=== PATIENT | female | born 1955 | race Caucasian/White ===

== ENCOUNTER 2017-09-15 08:19 | Inpatient (IN) | payer BC ==
[~2017-09-15] VITALS: Ht 165.1 cm; Wt 70.4 kg
[2017-09-15 09:11] LABS: Basophils # (auto) 0 uL; Basophils % (auto) 0.2 % (0.0-2.0); Eosinophils # (auto) 0 uL; Hematocrit 43.4 % (36.0-46.0); Hemoglobin 14.8 g/dL (12.2-16.2); Lymphocytes # (auto) 0.3 uL; Mean Corpuscular Hemoglobin 31.5 pg (28.0-32.0); Mean Corpuscular Volume 92.7 fL (80.0-100.0); Monocytes # (auto) 0 uL; Monocytes % (auto) 0.6 % (0.0-12.0); Neutrophils # (auto) 7.4 uL; Neutrophils % (auto) 95.2 % (37.0-80.0); Platelet Count (auto) 277 10^3/uL (140-450); Red Blood Cells 4.69 10^6/uL (4.0-5.20); Red Cell Distribution Width 13.8 % (11.8-14.3); White Blood Cell 7.8 10^3/uL (4.4-10.8)
[2017-09-15] MEDS ORDERED: ALBUTEROL SULF 2.5 MG/0.5ML(0.5%) NEB SOLN NEB ONE (09:30)
[2017-09-15] MEDS ORDERED: IPRATROPIUM BROM 0.5 MG/2.5ML INH SOL NEB ONE (09:30)
[2017-09-15] MEDS ORDERED: methylPREDNISolone SOD SUCC 125 MG/2 ML VL IV ONE (09:30)
[2017-09-15 09:43] LABS: Albumin 3.2 g/dL (3.4-5.0); BUN/Creatinine Ratio 12.5; Bilirubin, Total 0.7 mg/dL (0.2-1.0); Calcium 8.4 mg/dL (8.5-10.1); Potassium 3.3 mmol/L (3.5-5.1); Total Protein 7.3 g/dL (6.4-8.2)
[2017-09-15] MEDS ORDERED: POTASSIUM CHL 10% (20 MEQ/15ML) 15ml ORAL SOLN PO ONE (10:30)
[2017-09-15] MEDS ORDERED: HEPARIN SODIUM (PORCINE) 5000 UNITS/ML 1ML VIAL IV ONE (10:30)
[2017-09-15] MEDS ORDERED: SODIUM CHLORIDE 0.9% 1,000 ML IV SCH ×2 (10:35→13:15)
[2017-09-15] MEDS ORDERED: PROMETHAZINE HCL 25 MG/ML 1ML IV PRN (10:45)
[2017-09-15] MEDS ORDERED: OSELTAMIVIR 75 MG CAP PO ONE (10:45)
[2017-09-15] MEDS ORDERED: ALBUTEROL SULF 2.5 MG/0.5ML(0.5%) NEB SOLN NEB PRN (10:45)
[2017-09-15] MEDS ORDERED: ACETAMINOPHEN 500 MG TAB PO PRN (10:45)
[2017-09-15] MEDS ORDERED: ASPirin 81 mg TAB PO ONE (10:45)
[2017-09-15] MEDS ORDERED: TEMAZEPAM 15 MG CAP PO PRN (10:45)
[2017-09-15] MEDS ORDERED: NITROGLYCERIN 0.2MG/HR TOPICAL PATCH TD ONE (10:45)
[2017-09-15] MEDS ORDERED: MORPHINE SULFATE 10 MG/ML INJ 1ML SDV IV PRN ×2 (10:45)
[2017-09-15] MEDS ORDERED: NITROGLYCERIN 0.4 MG SL TAB SL PRN (10:45)
[2017-09-15] MEDS ORDERED: LACTULOSE 20Gm/30ML SOLN PO PRN (10:45)
[2017-09-15] MEDS ORDERED: LORazepam 0.5 MG TAB PO PRN (10:45)
[2017-09-15] MEDS ORDERED: HYDROcodone-ACET 5/325MG TAB PO PRN (10:45)
[2017-09-15 11:33] LABS: INR 1.05 (0.9-1.15); Partial Thromboplastin Time 24.6 sec (22.64-33.71); Prothrombin Time 11.4 sec (9.37-12.3)
[2017-09-15] MEDS: methylPREDNISolone SOD SUCC 40 MG/ML VL IV SCH ×2 (11:36→23:00)
[2017-09-15] MEDS: DOXYCYCLINE HYC 100MG/250ML 250 ML IV SCH ×2 (11:40→23:14)
[2017-09-15] MEDS: ENOXAPARIN SOD 80 MG/0.8ML SYRINGE SC SCH ×2 (11:40→21:25)
[2017-09-15] MEDS ORDERED: SODIUM CHLORIDE 0.9% 1,000 ML IV ONE ×2 (12:00→13:15)
[2017-09-15] MEDS ORDERED: IOHEXOL 350 MG/ML 100ML IJ ONE (12:20)
[2017-09-15] MEDS: ALBUTEROL SULF 2.5 MG/0.5ML(0.5%) NEB SOLN NEB SCH ×2 (13:23→19:17)
[2017-09-15] MEDS: IPRATROPIUM BROM 0.5 MG/2.5ML INH SOL NEB SCH ×2 (13:23→19:17)
[2017-09-15] MEDS: SODIUM CHLORIDE 0.9% 1,000 ML IV SCH ×2 (15:28→22:25)
[2017-09-15] MEDS ORDERED: NOREPINEPHRINE 8 MG/250ML KIT 250 ML IV ONE (18:40)
[2017-09-15] MEDS ORDERED: NOREPINEPHRINE 8 MG/250ML KIT 250 ML IV SCH (18:45)
[2017-09-15 20:45] VITALS: BP 106/61
[2017-09-15] MEDS: OSELTAMIVIR 75 MG CAP PO SCH (22:00)
[2017-09-15] MEDS: METOPROLOL TARTRATE 25 MG TAB PO SCH (22:00)
[2017-09-15] MEDS: ATORVASTATIN 20 MG TAB PO SCH (22:25)
[2017-09-16] MEDS: ALBUTEROL SULF 2.5 MG/0.5ML(0.5%) NEB SOLN NEB SCH ×5 (00:29→19:13)
[2017-09-16] MEDS: IPRATROPIUM BROM 0.5 MG/2.5ML INH SOL NEB SCH ×5 (00:29→19:13)
[2017-09-16 04:09] LABS: Basophils # (auto) 0 uL; Eosinophils # (auto) 0 uL; Hematocrit 36.6 % (36.0-46.0); Hemoglobin 12.2 g/dL (12.2-16.2); Lymphocytes # (auto) 0.6 uL; Lymphocytes % (auto) 2.8 % (10.0-50.0); Mean Corpuscular Hgb Conc. 33.3 g/dL (32.0-36.0); Mean Corpuscular Volume 92.9 fL (80.0-100.0); Monocytes # (auto) 0.4 uL; Monocytes % (auto) 1.8 % (0.0-12.0); Neutrophils # (auto) 21.5 uL; Neutrophils % (auto) 95.4 % (37.0-80.0); Nucleated Red Blood Cells % 0.1 %; Platelet Count (auto) 234 10^3/uL (140-450); Red Blood Cells 3.94 10^6/uL (4.0-5.20); Red Cell Distribution Width 14.2 % (11.8-14.3); White Blood Cell 22.5 10^3/uL (4.4-10.8)
[2017-09-16 04:33] LABS: Albumin 2.6 g/dL (3.4-5.0); BUN/Creatinine Ratio 20.4; Bilirubin, Total 0.2 mg/dL (0.2-1.0); Calcium 7.7 mg/dL (8.5-10.1); Total Protein 6.2 g/dL (6.4-8.2)
[2017-09-16] MEDS: SODIUM CHLORIDE 0.9% 1,000 ML IV SCH (07:17)
[2017-09-16 09:10] LABS: Alcohol, Urine < 3.0 mg/dL (0-5); Amphetamine Screen, Urine NEGATIVE (NEGATIVE); Barbiturate Scree,Urine NEGATIVE (NEGATIVE); Benzodiazephine Screen, Urine NEGATIVE (NEGATIVE); Cannabinoid Screen, Urine NEGATIVE (NEGATIVE); Cocaine Screen, Urine NEGATIVE (NEGATIVE); Opiate Scree,Urine NEGATIVE (NEGATIVE); Phencyclidine Screen, Urine NEGATIVE (NEGATIVE)
[2017-09-16] MEDS ORDERED: SODIUM CHLORIDE 0.9% 1,000 ML IV ONE (09:30)
[2017-09-16] MEDS ORDERED: POTASSIUM CHL 20 Meq TABLET PO ONE (09:30)
[2017-09-16] MEDS ORDERED: SODIUM CHL 0.9% 0 ML ONE (09:34)
[2017-09-16] MEDS ORDERED: MIDAZOLAM HCL 1MG/1ML-2 ML VIAL ONE (09:34)
[2017-09-16] MEDS ORDERED: VERAPAMIL 2.5MG/ML INJ 2ML VIAL IV ONE (09:34)
[2017-09-16] MEDS ORDERED: fentaNYL CITRATE 100 MCG/2 ML VL ONE (09:34)
[2017-09-16] MEDS ORDERED: ANGIOMAX 250 MG VIAL IV ONE (09:34)
[2017-09-16] MEDS ORDERED: LIDOCAINE 2%HCL (LOCAL ANESTH.) INJ 20ML MDV ONE (09:37)
[2017-09-16] MEDS ORDERED: IODIXANOL 320MG/ML 100ML BTL IV ONE (09:37)
[2017-09-16] MEDS: ENOXAPARIN SOD 80 MG/0.8ML SYRINGE SC SCH (10:00)
[2017-09-16] MEDS: OSELTAMIVIR 75 MG CAP PO SCH (10:00)
[2017-09-16] MEDS: METOPROLOL TARTRATE 25 MG TAB PO SCH ×2 (10:00→21:29)
[2017-09-16] MEDS: NITROGLYCERIN 0.2MG/HR TOPICAL PATCH TD SCH (10:00)
[2017-09-16] MEDS ORDERED: HEPARIN 1,000 UNITS/ml 1ML VIAL ONE (10:13)
[2017-09-16] MEDS ORDERED: SODIUM CHLORIDE 0.9% 1,000 ML IV SCH (11:00)
[2017-09-16] MEDS: ASPirin 81 mg TAB PO SCH (11:52)
[2017-09-16] MEDS: methylPREDNISolone SOD SUCC 40 MG/ML VL IV SCH ×2 (11:52→22:28)
[2017-09-16 12:30] VITALS: BP 116/65
[2017-09-16] MEDS: DOXYCYCLINE HYC 100MG/250ML 250 ML IV SCH ×2 (12:53→22:28)
[2017-09-16 12:58] VITALS: BP 116/65
[2017-09-16 13:00] VITALS: BP 116/65
[2017-09-16] MEDS ORDERED: TIOTCAP IN (13:11)
[2017-09-16] MEDS ORDERED: BUDE0.5S IN (13:11)
[2017-09-16] MEDS ORDERED: LISI-646 PO (14:44)
[2017-09-16] MEDS ORDERED: PRAV20TA3 PO (14:44)
[2017-09-16 17:00] VITALS: BP 114/54
[2017-09-16] MEDS: ATORVASTATIN 20 MG TAB PO SCH (21:29)
[2017-09-16 22:25] VITALS: BP 117/73
[2017-09-17] MEDS: ALBUTEROL SULF 2.5 MG/0.5ML(0.5%) NEB SOLN NEB SCH ×3 (00:58→11:42)
[2017-09-17] MEDS: IPRATROPIUM BROM 0.5 MG/2.5ML INH SOL NEB SCH ×3 (00:58→11:42)
[2017-09-17 05:24] VITALS: BP 134/49
[2017-09-17 07:14] LABS: Basophils # (auto) 0 uL; Basophils % (auto) 0.1 % (0.0-2.0); Eosinophils # (auto) 0.2 uL; Eosinophils % (auto) 0.8 % (0.0-7.0); Hematocrit 36.4 % (36.0-46.0); Hemoglobin 12.1 g/dL (12.2-16.2); Lymphocytes # (auto) 0.8 uL; Lymphocytes % (auto) 3.4 % (10.0-50.0); Mean Corpuscular Hgb Conc. 33.1 g/dL (32.0-36.0); Mean Corpuscular Volume 93.7 fL (80.0-100.0); Monocytes % (auto) 4.2 % (0.0-12.0); Neutrophils # (auto) 21.9 uL; Neutrophils % (auto) 91.5 % (37.0-80.0); Platelet Count (auto) 207 10^3/uL (140-450); Red Blood Cells 3.89 10^6/uL (4.0-5.20); Red Cell Distribution Width 14.4 % (11.8-14.3); White Blood Cell 23.9 10^3/uL (4.4-10.8)
[2017-09-17 07:26] LABS: BUN/Creatinine Ratio 23.2; Magnesium 2.3 mg/dL (1.6-2.6); Phosphorus 2.3 mg/dL (2.5-4.90); Potassium 3.9 mmol/L (3.5-5.1)
[2017-09-17 08:00] VITALS: BP 126/73
[2017-09-17 09:00] VITALS: BP 126/73
[2017-09-17] MEDS: NITROGLYCERIN 0.2MG/HR TOPICAL PATCH TD SCH (10:00)
[2017-09-17] MEDS: METOPROLOL TARTRATE 25 MG TAB PO SCH (10:00)
[2017-09-17] MEDS: ASPirin 81 mg TAB PO SCH (10:00)
[2017-09-17] MEDS: DOXYCYCLINE HYC 100MG/250ML 250 ML IV SCH (10:45)
[2017-09-17] MEDS: methylPREDNISolone SOD SUCC 40 MG/ML VL IV SCH (10:45)
[2017-09-17] MEDS ORDERED: ASP81EC PO (12:40)
[2017-09-17] MEDS ORDERED: DOX100T PO (12:40)
[2017-09-17 13:00] VITALS: BP 120/71
[2017-09-17 13:54] VITALS: BP 120/71
== END 2017-09-17 15:15 | disposition home or self-care (01) | DRG 865 ==
LOC: ER 08:19 → TELE 08:20 → TELE-EAST 09-16 12:30
PROVIDERS: ADMIT Internal Medicine; ATTEND Nurse Practitioner Acute Care
PROC: 4A023N7 Measurement of Cardiac Sampling and Pressure, Left Heart, Percutaneous Approach (ICD-10-PCS; principal; 2017-09-16)
PROC: B2111ZZ Fluoroscopy of Multiple Coronary Arteries using Low Osmolar Contrast (ICD-10-PCS; 2017-09-16)
PROC: B2151ZZ Fluoroscopy of Left Heart using Low Osmolar Contrast (ICD-10-PCS; 2017-09-16)
DX: B34.9 Viral infection, unspecified (principal); I21.A1 Myocardial infarction type 2; I24.9 Acute ischemic heart disease, unspecified; J43.9 Emphysema, unspecified; E87.5 Hyperkalemia; E11.9 Type 2 diabetes mellitus without complications; K59.00 Constipation, unspecified; F41.9 Anxiety disorder, unspecified; G47.00 Insomnia, unspecified; N28.89 Other specified disorders of kidney and ureter; E78.5 Hyperlipidemia, unspecified; E87.6 Hypokalemia; F17.210 Nicotine dependence, cigarettes, uncomplicated; I10 Essential (primary) hypertension; Z82.49 Family history of ischemic heart disease and other diseases of the circulatory system; Z88.5 Allergy status to narcotic agent
CPT/HCPCS: 36415; 36600; 71045; 71046; 71250; 71275; 80048; 80053; 80061; 80307; 82550; 82805; 83735; 83880; 84100; 84484; 85025; 85379; 85610; 85652; 85730; 86141; 87070; 87081; 87205; 87400; 93005; 93306; 93458; 94640; 96361; 96374; 96375; 99152; J2250; J3490; Q9967